=== PATIENT | female | born 1955 | race Caucasian/White ===

== ENCOUNTER → 2021-02-16 | Day surgery (SDC) | payer OTHER ==
[~2021-02-16] MED LIST: DEXAMETHASONE PHOS 24 MG/ML 10ML VIAL IV ONE; DEXAMETHASONE SOD PHOS INJ 4 MG/ML VIAL ONE; FENTANYL CITRATE/PF 100MCG/2 ML INJ ONE; LIDOCAINE HCL 2% LOCAL INJ 5 ML SDV VIAL INJ ONE; MIDAZOLAM HCL 2 MG/2 ML VIAL ONE; NEURONTIN100 MG PO; OFLOXACIN 0.3% (OTIC SOL) 5 ML BTL ONE; ONDANSETRON HCL INJ 2MG/ML 2ML 2 MG/ML VIAL ONE; POVIDONE IODINE 0.05% 0.05 % ML PO ONE; PROPOFOL IV EMULSION 10 MG/ML 20 ML VIAL ONE; SEVOFLURANE INHAL SOLN 250 ML PEN BTL ONE; VITAMIN D PO
[2021-02-16 11:40] VITALS: BP 114/64
== END | disposition home or self-care (01) ==
LOC: OR 07:39
PROVIDERS: ATTEND Otolaryngology Otolaryngology/Facial Plastic Surgery
DX: H91.03 Ototoxic hearing loss, bilateral (principal); H93.19 Tinnitus, unspecified ear; H74.01 Tympanosclerosis, right ear; I34.1 Nonrheumatic mitral (valve) prolapse; K21.9 Gastro-esophageal reflux disease without esophagitis; F41.9 Anxiety disorder, unspecified; Z87.01 Personal history of pneumonia (recurrent); Z87.891 Personal history of nicotine dependence
CPT/HCPCS: 69436; 93005; J1100; J2001; J2250; J2405; J2704; J3010

== ENCOUNTER → 2022-06-20 | Day surgery (SDC) | payer MEDICARE, OTHER ==
[~2022-06-20] MED LIST changes: +DEXAMETHASONE SOD PHOS INJ 4 MG/ML SDV ONE; -DEXAMETHASONE SOD PHOS INJ 4 MG/ML VIAL ONE; -FENTANYL CITRATE/PF 100MCG/2 ML INJ ONE; +FOLIVANE-PLUS1 EACH PO; +LYRICA200 MG; -MIDAZOLAM HCL 2 MG/2 ML VIAL ONE; +PROBIOTIC & AC1 EACH PO
[2022-06-20 14:40] VITALS: BP 103/59
== END | disposition home or self-care (01) ==
LOC: OR 10:42
PROVIDERS: ATTEND Otolaryngology Otolaryngology/Facial Plastic Surgery
DX: H91.03 Ototoxic hearing loss, bilateral (principal); H72.91 Unspecified perforation of tympanic membrane, right ear; J18.8 Other pneumonia, unspecified organism; K21.9 Gastro-esophageal reflux disease without esophagitis; T36.95XA Adverse effect of unspecified systemic antibiotic, initial encounter
CPT/HCPCS: 69436; 71046; 93005; J1100; J2001; J2405; J2704